=== PATIENT | female | born 1975 | race American Indian/Alaskan Native ===

== ENCOUNTER 2019-01-15 18:57 | Observation (INO) | payer BC ==
[2019-01-15 20:18] LABS: HEMOGLOBIN 11.8 g/dL (12.0-16.0); MEAN CELL VOLUME 81.3 fl (80.0-105.0); MEAN CORPUSCULAR HEMOGLOBIN 26.5 pg (25.0-35.0); MEAN CORPUSCULAR HGB CONC 32.6 g/dl (31.0-37.0); MEAN PLATELET VOLUME 8.2 fl (7.0-11.0); RBC 4.45 10^6/uL (3.5-6.1); RED CELL DISTRIBUTION WIDTH 14.8 % (11.5-14.5)
[2019-01-15 20:20] LABS: ALB/GLOB RATIO 1.1 (1.1-1.8); ALBUMIN 4.4 g/dL (3.0-4.8); ALT/SGPT 18 U/L (7-56); AST/SGOT 35 U/L (14-36); BLOOD UREA NITROGEN 14 mg/dL (7-21); CALCIUM 9.9 mg/dL (8.4-10.5); GFR NON-AFRICAN AMERICAN > 60
[2019-01-15 20:28] LABS: TROPONIN I < 0.01 ng/mL
--- NOTE | 2019-01-15 20:29 | ED PDOC ---
Arrival/HPI <Tyrone Meade - Last Filed: 01/15/19 23:12> - General Historian: Patient - History of Present Illness Narrative History of Present Illness (Text): 01/15/19 20:18 44 y/o female with PMH of iron deficiency anemia presents to the ED after fainting [place] the train [place] prior to come today. She reports lightheadedness, warmths, nausea before the episode. She lost consciousness for unknown period of time. She denied fall or trauma to the head. Denied chest pain, palpitations, SOB, headache, muscle weakness, loss of sensation or any other neurological symptoms, no urinary symptoms, no N/V/D or change in bowel movement. Patient denied h/o cardiac disease, neurological disease, seizure disorder or similar symptoms in the past. She reports having only some snack for the whole day. Patient also c/o right hip pain fo 2 days. She runs 5 miles a day 4-5 days/weak. Hip pain radiates to the right knee, denied any trauma to the area, no muscle weakness, no loss of sensation, no change in temperature, no swelling. She did not take any pain meds for the pain. Time/Duration: Prior to Arrival Symptom Onset: Sudden Symptom Course: Resolved Context: Home <Jose M Sahu - Last Filed: 01/16/19 00:13> - General Chief Complaint: Syncope Past Medical History - Provider Review Nursing Documentation Reviewed: Yes - Psychiatric Hx Psychophysiologic Disorder: No Hx Substance Use: No <Jose M Sahu - Last Filed: 01/16/19 00:13> Family/Social History - Physician Review Nursing Documentation Reviewed: Yes Family/Social History: Unknown Family HX Smoking Status: Never Smoked Hx Alcohol Use: Yes Frequency of alcohol use: Socially Hx Substance Use: No <Jose M Sahu - Last Filed: 01/16/19 00:13> Allergies/Home Meds <Tyrone Meade - Last Filed: 01/15/19 23:12> <Jose M Sahu - Last Filed: 01/16/19 00:13> Allergies/Adverse Reactions: Allergies gluten Allergy (Verified 01/15/19 19:01) RASH Home Medications: Home Meds Medication Instructions Recorded Confirmed No Known Home Med 01/15/19 01/15/19 Review of Systems - Physician Review All systems were reviewed & negative as marked: Yes - Review of Systems Constitutional: absent: Fatigue, Weight Change, Fevers, Night Sweats Eyes: absent: Vision Changes, Photophobia ENT: absent: Hearing Changes, Tinnitus Respiratory: absent: SOB, Cough, Sputum Cardiovascular: absent: Chest Pain, Palpitations Gastrointestinal: absent: Abdominal Pain, Stool Changes, Nausea, Vomiting Genitourinary Female: absent: Dysuria, Frequency, Hematuria Musculoskeletal: Arthralgias (right hip pain). absent: Back Pain, Neck Pain, Joint Swelling Skin: absent: Rash, Pruritis Neurological: absent: Headache, Focal Weakness, Speech Changes Endocrine: absent: Diaphoresis, Polyuria, Polydipsia Hemo/Lymphatic: absent: Easy Bleeding Psychiatric: absent: Anxiety, Depression <Jose M Sahu - Last Filed: 01/16/19 00:13> Physical Exam Vital Signs Temp Pulse Resp BP Pulse Ox 01/15/19 19:02 98.9 F 66 16 113/73 99 <Tyrone Meade - Last Filed: 01/15/19 23:12> Vital Signs Reviewed: Yes Vital Signs Temp Pulse Resp BP Pulse Ox 01/15/19 19:02 98.9 F 66 16 113/73 99 Temperature: Afebrile Blood Pressure: Normal Pulse: Regular Respiratory Rate: Normal Appearance: Positive for: Well-Appearing, Non-Toxic, Comfortable Pain Distress: Moderate Mental Status: Positive for: Alert and Oriented X 3 Finger Stick Blood Glucose: 70 - Systems Exam Head: Present: Atraumatic, Normocephalic Pupils: Present: PERRL Extroacular Muscles: Present: EOMI Conjunctiva: Present: Other (pale) Mouth: Present: Moist Mucous Membranes Pharnyx: No: ERYTHEMA, EXUDATE Neck: Present: Normal Range of Motion. No: MIDLINE TENDERNESS, JVD Respiratory/Chest: Present: Clear to Auscultation. No: Respiratory Distress, Accessory Muscle Use Cardiovascular: Present: Regular Rate and Rhythm, Normal S1, S2. No: Murmurs, Rub, Gallop Abdomen: Present: Normal Bowel Sounds. No: Tenderness, Distention, Rebound, Guarding Back: No: Normal Inspection, CVA Tenderness Upper Extremity: Present: Normal Inspection. No: Cyanosis, Edema Lower Extremity: Present: NORMAL PULSES, Tenderness (right hip. limited ROM). No: Edema, CALF TENDERNESS, Eugenio's Sign, Swelling, Erythema, Deformity Neurological: Present: GCS=15, CN II-XII Intact Skin: Present: Warm, Dry, Normal Color. No: Rashes Psychiatric: Present: Alert, Oriented x 3 <May Sahuony - Last Filed: 01/16/19 00:13> Medical Decision Making ED Course and Treatment: Impression: Pt seen and evaluated with medical technician. Aware and agree with HPI, clinical findings, plan, and management. Pt, whose past medical history includes anemia, presents s/p syncopal episode today. Plan: -- CT Head w/o contrast -- EKG -- Chest X-ray -- XR Hips -- Labs, cardiac enzymes -- Reassess and disposition Reviewed EKG, NSR at [address] bpm[address] Non-specific ST/T wave changes. 01/15/19 23:00 Chest X-ray reviewed, shows no acute processes. - Lab Interpretations Lab Results: Troponin I < 0.01 ng/mL 01/15/19 19:55 Total Bilirubin 0.6 mg/dL (0.2-1.3) 01/15/19 19:55 AST 35 U/L (14-36) 01/15/19 19:55 ALT 18 U/L (7-56) 01/15/19 19:55 Alkaline Phosphatase 85 U/L (38-126) 01/15/19 19:55 Total Protein 8.2 g/dL (5.8-8.3) 01/15/19 19:55 Albumin 4.4 g/dL (3.0-4.8) 01/15/19 19:55 Globulin 3.9 gm/dL 01/15/19 19:55 Albumin/Globulin Ratio 1.1 (1.1-1.8) 01/15/19 19:55 I have reviewed the lab results: Yes - RAD Interpretation Radiology Orders: 01/15/19 19:35 HEAD W/O CONTRAST [CT] Stat CHEST PORTABLE [RAD] Stat 01/15/19 19:36 Hip Bilateral [HIP MIN 3V W/ PELVIS ZULMA] [RAD] Stat Field Tax Auditor: ED Physician - EKG Interpretation Interpreted by ED Physician: Yes Type: 12 lead EKG <Tyrone Meade - Last Filed: 01/15/19 23:12> ED Course and Treatment: CT head negative for ICH -Case discussed with Dr Lee and medical technician. Patient is admitted for observation in remote tele. 01/16/19 00:10 - Lab Interpretations I have reviewed the lab results: Yes - RAD Interpretation Radiology Orders: 01/15/19 19:35 HEAD W/O CONTRAST [CT] Stat CHEST PORTABLE [RAD] Stat 01/15/19 19:36 Hip Bilateral [HIP MIN 3V W/ PELVIS ZULMA] [RAD] Stat Field Tax Auditor: ED Physician - EKG Interpretation Interpreted by ED Physician: Yes Type: 12 lead EKG <Jose M Sahu - Last Filed: 01/16/19 00:13> - PA / [employer] / Resident Statement MD/DO has reviewed & agrees with the documentation as recorded. MD/DO has examined the patient and agrees with the treatment plan. <Tyrone Meade - Last Filed: 01/15/19 23:12> Disposition/Present on Arrival <Tyrone Meade - Last Filed: 01/15/19 23:12> - Present on Arrival Any Indicators Present on Arrival: No History of DVT/PE: No History of Uncontrolled Diabetes: No Urinary Catheter: No History of Decub. Ulcer: No History Surgical Site Infection Following: None - Disposition Have Diagnosis and Disposition been Completed?: Yes Disposition Time: 00:13 Patient Plan: Admission, Observation <Jose M Sahu - Last Filed: 01/16/19 00:13> - Disposition Diagnosis: Syncope, Iliotibial band syndrome Disposition: HOSPITALIZED Patient Problems: Current Active Problems Problem Status Onset Iliotibial band syndrome Acute Syncope Acute Condition: STABLE
--- NOTE | 2019-01-16 00:18 | CP.PCM.HP ---
<YasmeenSilviagilson - Last Filed: 01/16/19 02:15> History of Present Illness - History of Present Illness History of Present Illness: PGY1 Hospitalist History and Physical Exam Note for Dr. Lee CC: s/p fainting episode This is a 44 year old female with PMH of iron deficiency anemia, thalassemia trait who presents to the ED after fainting in a train station just prior to arrival. Patient states that she was hanging onto a rail on the train when she began feeling lightheaded and nauseous. The Patient then says that she recalls hearing people around saying "help her down," and realized she must have fainted. Patient admits that she lost consciousness for unknown period of time. ROS is otherwise unremarkable for chest pain, palpitations, shortness of breath, headache, muscle weakness, no urinary and/or bowel incontinence, and/or tongue biting. Patient denies previous episodes. She denies having complete meals today, and says that she only had a small snack to eat. Of note, the Patient also complains of right hip pain for the past 2 days, and says that the pain radiates into the right knee. Patient says that she is a runner who runs 5 miles a day 4-5 days/week. Patient denies any fall and/or trauma to the area, no muscle weakness, no loss of sensation, no change in temperature, no swelling. PMH: iron deficiency anemia, thalassemia trait PSH: Tubal ligation Family Hx: Sister 2/2 thalassemia complication Social Hx: Patient admits to drinking socially. Patient denies tobacco use. patient denies substance abuse Medications: Patient denies taking any medications Allergies: Gluten (rash) Present on Admission - Present on Admission Any Indicators Present on Admission: No History of DVT/PE: No History of Uncontrolled Diabetes: No Urinary Catheter: No Decubitus Ulcer Present: No Review of Systems - Review of Systems All systems: reviewed and no additional remarkable complaints except (as per HPI) Past Patient History - Past Social History Smoking Status: Never Smoked - PSYCHIATRIC Hx Psychophysiologic Disorder: No Hx Substance Use: No - SURGICAL HISTORY Hx Surgeries: No Meds Allergies/Adverse Reactions: Allergies Allergy/AdvReac Type Severity Reaction Status Date / Time gluten Allergy RASH Verified 01/15/19 19:01 Physical Exam - Constitutional Appears: Non-toxic, No Acute Distress - Head Exam Head Exam: ATRAUMATIC, NORMAL INSPECTION, NORMOCEPHALIC - Eye Exam Eye Exam: EOMI, Normal appearance, PERRL Pupil Exam: NORMAL ACCOMODATION - ENT Exam ENT Exam: Mucous Membranes Moist, Normal Exam - Neck Exam Neck exam: Positive for: Full Rom, Normal Inspection. Negative for: Lymphadenopathy - Respiratory Exam Respiratory Exam: Clear to Auscultation Bilateral, NORMAL BREATHING PATTERN. absent: Accessory Muscle Use, Decreased Breath Sounds, Rhonchi, Wheezes, Respiratory Distress, Stridor - Cardiovascular Exam Cardiovascular Exam: REGULAR RHYTHM, +S1, +S2 - GI/Abdominal Exam GI & Abdominal Exam: Normal Bowel Sounds, Soft. absent: Distended, Firm, Guarding, Tenderness - Extremities Exam Extremities exam: Positive for: full ROM, normal capillary refill, normal insp ection, pedal pulses present. Negative for: calf tenderness, joint swelling, pedal edema - Back Exam Back exam: NORMAL INSPECTION - Neurological Exam Neurological exam: Alert, CN II-XII Intact, Oriented x3 - Psychiatric Exam Psychiatric exam: Normal Affect, Normal Mood - Skin Skin Exam: Dry, Intact, Normal Color, Warm Results - Vital Signs Recent Vital Signs: Last Vital Signs Temp 98.9 F 01/15/19 19:02 Pulse 76 01/15/19 23:25 Resp 24 01/15/19 23:25 BP 100/56 L 01/15/19 23:25 Pulse Ox 96 01/15/19 23:25 - Labs Result Diagrams: 01/15/19 19:55 01/15/19 19:55 Labs: Laboratory Results - last 24 hr 01/15/19 01/15/19 01/15/19 19:50 19:55 19:55 WBC 8.0 RBC 4.45 Hgb 11.8 L Hct 36.2 MCV 81.3 MCH 26.5 MCHC 32.6 RDW 14.8 H Plt Count 310 MPV 8.2 Sodium 137 Potassium 4.1 Chloride 101 Carbon Dioxide 28 Anion Gap 12 BUN 14 Creatinine 0.8 Est GFR ( Amer) > 60 Est GFR (Non-Af Amer) > 60 POC Glucose (mg/dL) 70 Random Glucose 91 Calcium 9.9 Total Bilirubin 0.6 AST 35 ALT 18 Alkaline Phosphatase 85 Lactate Dehydrogenase 445 Total Creatine Kinase 92 Troponin I < 0.01 Total Protein 8.2 Albumin 4.4 Globulin 3.9 Albumin/Globulin Ratio 1.1 Assessment & Plan - Assessment and Plan (Free Text) Assessment: This is a 44 year old female with PMH of iron deficiency anemia, thalassemia tra it who presents to the ED after fainting [place] a train [place] just prior to arrival. S/P syncope - CT head without contrast: no acute intracranial abnormality - EKG: NSR at 77 bpm. Non-specific ST/T wave changes. - CXR: no acute processes - Cardiology consulted (Dr. Amaya) recommendations appreciated - Neurology consulted (Dr. Damico) recommendations appreciated - ECHO with bubble study ordered - Carotid duplex ordered - Troponins negative x1 - F/U UDS - F/U repeat EKG - F/U repeat troponin Q6H - F/U CBC, CMP, Mg, Phos - Monitor in remote telemetry Right Hip Pain likely secondary to running - F/U hip/pelvis X-ray - Pain management: Toradol 15mg IVP Q6H for severe pain History of Iron Deficiency Anemia - Hgb=11.8 - F/U iron studies - F/U B12, folate - Consider checking for thalassemia trait - Monitor CBC PPx: - DVT: SCD - GI: not indicated at this time - Regular diet Patient seen and case discussed with Dr. Rosa Arana PGY1 <Maddie Lee - Last Filed: 01/16/19 05:47> Results - Vital Signs Recent Vital Signs: Last Vital Signs Temp 98.2 F 01/16/19 01:00 Pulse 69 01/16/19 05:32 Resp 18 01/16/19 01:02 BP 106/64 01/16/19 01:00 Pulse Ox 95 01/16/19 01:00 - Labs Result Diagrams: 01/15/19 19:55 01/15/19 19:55 Labs: Laboratory Results - last 24 hr 01/15/19 01/15/19 01/15/19 19:50 19:55 19:55 WBC 8.0 RBC 4.45 Hgb 11.8 L Hct 36.2 MCV 81.3 MCH 26.5 MCHC 32.6 RDW 14.8 H Plt Count 310 MPV 8.2 Sodium 137 Potassium 4.1 Chloride 101 Carbon Dioxide 28 Anion Gap 12 BUN 14 Creatinine 0.8 Est GFR ( Amer) > 60 Est GFR (Non-Af Amer) > 60 POC Glucose (mg/dL) 70 Random Glucose 91 Calcium 9.9 Iron TIBC % Saturation Total Bilirubin 0.6 AST 35 ALT 18 Alkaline Phosphatase 85 Lactate Dehydrogenase 445 Total Creatine Kinase 92 Troponin I < 0.01 Total Protein 8.2 Albumin 4.4 Globulin 3.9 Albumin/Globulin Ratio 1.1 TSH 3rd Generation 01/16/19 01/16/19 01/16/19 01:45 01:45 01:45 WBC RBC Hgb Hct MCV MCH MCHC RDW Plt Count MPV Sodium Potassium Chloride Carbon Dioxide Anion Gap BUN Creatinine Est GFR ( Amer) Est GFR (Non-Af Amer) POC Glucose (mg/dL) Random Glucose Calcium Iron 19 L TIBC 342 % Saturation 5 L Total Bilirubin AST ALT Alkaline Phosphatase Lactate Dehydrogenase Total Creatine Kinase Troponin I < 0.01 Total Protein Albumin Globulin Albumin/Globulin Ratio TSH 3rd Generation 5.73 H Attending/Attestation - Attestation I have personally seen and examined this patient.: Yes I have fully participated in the care of the patient.: Yes I have reviewed all pertinent clinical information: Yes Notes (Text): 01/16/19 05:42 Pt seen with the resident by the bedside. Case discussed in detail. Agree with documentation,assessment and plan of treatment.
[2019-01-16 01:04] VITALS: RESP 18
[2019-01-16 01:50] VITALS: BMI 34.5
[2019-01-16 02:25] LABS: IRON 19 ug/dL (45-180)
[2019-01-16 02:35] LABS: % IRON SATURATION 5 % (20-55); TOTAL IRON BINDING CAPACITY 342 ug/dL (265-497)
[2019-01-16 02:38] LABS: TROPONIN I < 0.01 ng/mL
--- NOTE | 2019-01-16 08:21 | CT ---
Date of service: 01/15/2019 PROCEDURE: CT HEAD WITHOUT CONTRAST. HISTORY: syncope COMPARISON: None available. TECHNIQUE: Axial computed tomography images were obtained through the head/brain without intravenous contrast. Radiation dose: Total exam DLP = 959.92 mGy-cm. This CT exam was performed using one or more of the following dose reduction techniques: Automated exposure control, adjustment of the mA and/or kV according to patient size, and/or use of iterative reconstruction technique. FINDINGS: HEMORRHAGE: No intracranial hemorrhage. BRAIN: No mass effect or edema. No atrophy or chronic microvascular ischemic changes. VENTRICLES: Unremarkable. No hydrocephalus. CALVARIUM: Unremarkable. PARANASAL SINUSES: Unremarkable as visualized. No significant inflammatory changes. MASTOID AIR CELLS: Unremarkable as visualized. No inflammatory changes. OTHER FINDINGS: The report concurs with the preliminary [facility] report IMPRESSION: No acute intracranial findings
[2019-01-16 09:22] VITALS: BP 102/68; TEMP 98.2; O2SAT 96
--- NOTE | 2019-01-16 09:23 | RAD ---
Date of service: 01/15/2019 PROCEDURE: CHEST RADIOGRAPH, 1 VIEW HISTORY: syncope COMPARISON: None available. FINDINGS: LUNGS: Clear. PLEURA: No pneumothorax or pleural fluid seen. CARDIOVASCULAR: No aortic atherosclerotic calcification present. Normal. OSSEOUS STRUCTURES: No significant abnormalities. VISUALIZED UPPER ABDOMEN: Normal. OTHER FINDINGS: None. IMPRESSION: No active disease.
--- NOTE | 2019-01-16 10:43 | US ---
PROCEDURE: Bilateral carotid artery duplex ultra HISTORY: Carotid stenosis syncope PHYSICIAN(S): Jasbir Lagos MD. TECHNIQUE: Duplex sonography and color-flow Doppler were used to evaluate the carotid bifurcations and limited segments of the vertebral arteries bilaterally. FINDINGS: There is minimal intimal-medial thickening noted at the carotid bifurcations bilaterally. The peak systolic velocity in the proximal right internal carotid artery is 78 cm/sec. This corresponds to a 0-19 percent proximal right ICA stenosis. Normal systolic velocities are noted in the proximal right external carotid artery. There is antegrade flow in the right vertebral artery. The peak systolic velocity in the proximal left internal carotid artery is 77 cm/sec. This corresponds to a 0-19 percent proximal left ICA stenosis. Normal systolic velocities are noted in the proximal left external carotid artery. There is antegrade flow in the left vertebral artery. IMPRESSION: 1. Bilateral 0-19 percent proximal ICA stenoses. 2. Antegrade flow in both vertebral arteries.
[2019-01-16 11:14] VITALS: PULSE 68
--- NOTE | 2019-01-16 11:15 | RAD ---
PROCEDURE: Radiographs of the pelvis and bilateral hips HISTORY: right hip pain COMPARISON: None. FINDINGS: BONES: Pelvis: Unremarkable. Right hip:Unremarkable. Left hip:Unremarkable. JOINTS: Right hip: Unremarkable. Left hip: Unremarkable. Sacroiliac Joints: Unremarkable. Pubic symphysis: Unremarkable. SOFT TISSUES: Normal. OTHER FINDINGS: None. IMPRESSION: Unremarkable radiographs of the hips and pelvis.
[2019-01-16 13:01] LABS: FERRITIN 14.3 ng/mL
--- NOTE | 2019-01-16 13:29 | CP.PCM.DIS ---
<Constantin Bernabe - Last Filed: 01/16/19 13:52> Provider - Provider Date of Admission: 01/15/19 23:10 Attending physician: Jessica Lin MD Primary care physician: NO FAMILY PROVIDER Consults: 01/16/19 01:03 Physician Consult Routine Comment: Consulting Provider: Jessica Amaya Consulting Physician: Jessica Amaya Reason for Consult: s/p syncope 01/16/19 01:07 Physician Consult Routine Comment: Consulting Provider: Roseanne Damico Consulting Physician: Roseanne Daimco Reason for Consult: S/P syncope Time Spent in preparation of Discharge (in minutes): 45 Diagnosis - Discharge Diagnosis (1) Syncope Status: Resolved (2) Hypothyroidism Status: Chronic (3) Iliotibial band syndrome Status: Chronic Hospital Course - Lab Results Lab Results: Most Recent Lab Values WBC 8.0 10^3/uL (4.5-11.0) 01/15/19 19:55 RBC 4.45 10^6/uL (3.5-6.1) 01/15/19 19:55 Hgb 11.8 g/dL (12.0-16.0) L 01/15/19 19:55 Hct 36.2 % (36.0-48.0) 01/15/19 19:55 MCV 81.3 fl (80.0-105.0) 01/15/19 19:55 MCH 26.5 pg (25.0-35.0) 01/15/19 19:55 MCHC 32.6 g/dl (31.0-37.0) 01/15/19 19:55 RDW 14.8 % (11.5-14.5) H 01/15/19 19:55 Plt Count 310 10^3/uL (120.0-450.0) 01/15/19 19:55 MPV 8.2 fl (7.0-11.0) 01/15/19 19:55 Sodium 137 mmol/L (132-148) 01/15/19 19:55 Potassium 4.1 mmol/L (3.6-5.0) 01/15/19 19:55 Chloride 101 mmol/L (98-107) 01/15/19 19:55 Carbon Dioxide 28 mmol/L (21-33) 01/15/19 19:55 Anion Gap 12 (10-20) 01/15/19 19:55 BUN 14 mg/dL (7-21) 01/15/19 19:55 Creatinine 0.8 mg/dl (0.7-1.2) 01/15/19 19:55 Est GFR ( Amer) > 60 01/15/19 19:55 Est GFR (Non-Af Amer) > 60 01/15/19 19:55 POC Glucose (mg/dL) 70 mg/dL (65-110) 01/15/19 19:50 Random Glucose 91 mg/dL (70-110) 01/15/19 19:55 Hemoglobin A1c 5.6 % (4.2-6.5) 01/15/19 19:55 Calcium 9.9 mg/dL (8.4-10.5) 01/15/19 19:55 Iron 19 ug/dL (45-180) L 01/16/19 01:45 TIBC 342 ug/dL (265-497) 01/16/19 01:45 % Saturation 5 % (20-55) L 01/16/19 01:45 Ferritin 14.3 ng/mL 01/16/19 01:45 Total Bilirubin 0.6 mg/dL (0.2-1.3) 01/15/19 19:55 AST 35 U/L (14-36) 01/15/19 19:55 ALT 18 U/L (7-56) 01/15/19 19:55 Alkaline Phosphatase 85 U/L (38-126) 01/15/19 19:55 Lactate Dehydrogenase 445 U/L (333-699) 01/15/19 19:55 Total Creatine Kinase 92 U/L (35-230) 01/15/19 19:55 Troponin I < 0.01 ng/mL 01/16/19 10:40 Total Protein 8.2 g/dL (5.8-8.3) 01/15/19 19:55 Albumin 4.4 g/dL (3.0-4.8) 01/15/19 19:55 Globulin 3.9 gm/dL 01/15/19 19:55 Albumin/Globulin Ratio 1.1 (1.1-1.8) 01/15/19 19:55 Free T4 0.76 ng/dL (0.78-2.19) L 01/16/19 10:40 TSH 3rd Generation 5.73 mIU/mL (0.46-4.68) H 01/16/19 01:45 - Hospital Course Hospital Course: This is a 44 year old female with PMH of iron deficiency anemia and sickle cell trait who [place]. Patient states that she was hanging onto a rail on the train when she began feeling lightheaded and nauseous. She states that she did not eat anything but 1 or 2 pieces of crackers for the whole day. She admits to have lost consciousness but denies urinary and/or bowel incontinence, and/or tongue biting. Patient denies previous syncopal episodes. During her hospital stay, a syncope work up was done. EKG, CXR. Head CT, Hip/pelvis Xray, carotid artery ultrasound, and echocardiogram were done and showed no acute findings. She was treated with pepcid for gerd symptoms and toradol for her leg pain. Patient was found to have high TSH and low T4. Patient was diagnosed with hypothryroidism and was instructed to start taking synthroid. Patient was educated about hypothyroidism and all questions were answered. She was instructed to follow up with her PMD in one week and return to the emergency room for worsening or newly concerning symptoms. Discharge Exam - Head Exam Head Exam: ATRAUMATIC, NORMAL INSPECTION, NORMOCEPHALIC - Additional Findings Additional findings: - Constitutional Appears: Non-toxic, No Acute Distress - Head Exam Head Exam: ATRAUMATIC, NORMAL INSPECTION, NORMOCEPHALIC - Eye Exam Eye Exam: EOMI, Normal appearance, PERRL Pupil Exam: NORMAL ACCOMODATION - ENT Exam ENT Exam: Mucous Membranes Moist, Normal Exam - Neck Exam Neck exam: Positive for: Full Rom, Normal Inspection. Negative for: Lymphadenopathy - Respiratory Exam Respiratory Exam: Clear to Auscultation Bilateral, NORMAL BREATHING PATTERN. absent: Accessory Muscle Use, Decreased Breath Sounds, Rhonchi, Wheezes, Respiratory Distress, Stridor - Cardiovascular Exam Cardiovascular Exam: REGULAR RHYTHM, +S1, +S2 - GI/Abdominal Exam GI & Abdominal Exam: Normal Bowel Sounds, Soft. absent: Distended, Firm, Guarding, Tenderness - Extremities Exam Extremities exam: Positive for: full ROM, normal capillary refill, normal inspection, pedal pulses present. Negative for: calf tenderness, joint swelling, pedal edema. Lateral right thigh tender to palpation - Back Exam Back exam: NORMAL INSPECTION - Neurological Exam Neurological exam: Alert, CN II-XII Intact, Oriented x3 - Psychiatric Exam Psychiatric exam: Normal Affect, Normal Mood - Skin Skin Exam: Dry, Intact, Normal Color, Warm Discharge Plan - Discharge Medications Prescriptions: Levothyroxine [Synthroid] 25 mcg PO DAILY #30 tab - Follow Up Plan Condition: STABLE Disposition: HOME/ ROUTINE Instructions: Hypothyroidism (Underactive Thyroid) (DC), Iliotibial Band Syndrome (DC), Syncope (ED) Additional Instructions: 1. Start taking Synthroid 25mg once daily every morning on an empty stomach. 2. Stay hydrated throughout the day and avoid skipping meals. Eat breakfast, lunch, and dinner. 3. Follow up with your primary care doctor, Dr. Soto in 1 week. You will need to schedule for a repeat blood test to check your Thyroid levels with your doctor. 4. Rest and avoid vigorous activities/exercise for 4-6 weeks. You may take Ibuprofen as needed for your right leg pain. 5. Return to the emergency room for worsening or newly concerning symptoms Referrals: FAMILY PROVIDER,NO [Primary Care Provider] - Follow up with primary <Jessica Lin - Last Filed: 01/17/19 08:10> Provider - Provider Date of Admission: 01/15/19 23:10 Attending physician: Jessica Lin MD Primary care physician: TEGAN FAMILY PROVIDER Consults: 01/16/19 01:03 Physician Consult Routine Comment: Consulting Provider: Jessica Amaya Consulting Physician: Jessica Amaya Reason for Consult: s/p syncope 01/16/19 01:07 Physician Consult Routine Comment: Consulting Provider: Roseanne Damico Consulting Physician: Roseanne Damico Reason for Consult: S/P syncope Hospital Course - Lab Results Lab Results: Most Recent Lab Values WBC 8.0 10^3/uL (4.5-11.0) 01/15/19 19:55 RBC 4.45 10^6/uL (3.5-6.1) 01/15/19 19:55 Hgb 11.8 g/dL (12.0-16.0) L 01/15/19 19:55 Hct 36.2 % (36.0-48.0) 01/15/19 19:55 MCV 81.3 fl (80.0-105.0) 01/15/19 19:55 MCH 26.5 pg (25.0-35.0) 01/15/19 19:55 MCHC 32.6 g/dl (31.0-37.0) 01/15/19 19:55 RDW 14.8 % (11.5-14.5) H 01/15/19 19:55 Plt Count 310 10^3/uL (120.0-450.0) 01/15/19 19:55 MPV 8.2 fl (7.0-11.0) 01/15/19 19:55 Sodium 137 mmol/L (132-148) 01/15/19 19:55 Potassium 4.1 mmol/L (3.6-5.0) 01/15/19 19:55 Chloride 101 mmol/L (98-107) 01/15/19 19:55 Carbon Dioxide 28 mmol/L (21-33) 01/15/19 19:55 Anion Gap 12 (10-20) 01/15/19 19:55 BUN 14 mg/dL (7-21) 01/15/19 19:55 Creatinine 0.8 mg/dl (0.7-1.2) 01/15/19 19:55 Est GFR ( Amer) > 60 01/15/19 19:55 Est GFR (Non-Af Amer) > 60 01/15/19 19:55 POC Glucose (mg/dL) 70 mg/dL (65-110) 01/15/19 19:50 Random Glucose 91 mg/dL (70-110) 01/15/19 19:55 Hemoglobin A1c 5.6 % (4.2-6.5) 01/15/19 19:55 Calcium 9.9 mg/dL (8.4-10.5) 01/15/19 19:55 Iron 19 ug/dL (45-180) L 01/16/19 01:45 TIBC 342 ug/dL (265-497) 01/16/19 01:45 % Saturation 5 % (20-55) L 01/16/19 01:45 Ferritin 14.3 ng/mL 01/16/19 01:45 Total Bilirubin 0.6 mg/dL (0.2-1.3) 01/15/19 19:55 AST 35 U/L (14-36) 01/15/19 19:55 ALT 18 U/L (7-56) 01/15/19 19:55 Alkaline Phosphatase 85 U/L (38-126) 01/15/19 19:55 Lactate Dehydrogenase 445 U/L (333-699) 01/15/19 19:55 Total Creatine Kinase 92 U/L (35-230) 01/15/19 19:55 Troponin I < 0.01 ng/mL 01/16/19 10:40 Total Protein 8.2 g/dL (5.8-8.3) 01/15/19 19:55 Albumin 4.4 g/dL (3.0-4.8) 01/15/19 19:55 Globulin 3.9 gm/dL 01/15/19 19:55 Albumin/Globulin Ratio 1.1 (1.1-1.8) 01/15/19 19:55 Vitamin B12 164 pg/mL (239-931) L 01/16/19 01:45 Folate 7.4 ng/mL 01/16/19 01:45 Free T4 0.76 ng/dL (0.78-2.19) L 01/16/19 10:40 TSH 3rd Generation 5.73 mIU/mL (0.46-4.68) H 01/16/19 01:45 Attending/Attestation - Attestation I have personally seen and examined this patient.: Yes I have fully participated in the care of the patient.: Yes I have reviewed all pertinent clinical information, including history, physical exam and plan: Yes Notes (Text): 01/17/19 08:06 Medical record note made by the resident after discussion with my direction and input after the patient was personally seen and examined by me. I have reviewed the chart and agree that the record accurately reflects by personal performance of the history, physical exam, data review, and medical decision-making, in the course for the patient. I have also personally directed the plan of care. 44 year old female with PMH of iron deficiency anemia and sickle cell trait was admitted with H/O syncope while standing , there was no focal deficit. Etiology is likely due to orthostatic hypotension. Telemetry is unremarkable for any arrhythmia. CT head is negative. Echo showed normal systolic function. Carotid Doppler is unremarkable. Patient is ambulatory at the time of discharge. She is found to have hypothyroidism, has been started on levothyroxine 25 mcg daily, will need repeat TSH level in 6-8 weeks. Management plan was discussed in detail with patient. Education was provided.
[2019-01-16 13:31] LABS: FOLATE 7.4 ng/mL
--- NOTE | 2019-01-16 15:44 | CARD ---
APPROVED REPORT Date of service: 01/15/2019 EKG Measurement Heart [id number] <Conclusion> Normal sinus rhythm Normal Electrocardiogram
--- NOTE | 2019-01-16 17:47 | CARD ---
APPROVED REPORT Date of service: 01/16/2019 EXAM: Two-dimensional and M-mode echocardiogram with Doppler and color Doppler. INDICATION Syncope 2D DIMENSIONS Left Atrium (2D)3.3 (1.6-4.0cm)IVSd1.2 (0.7-1.1cm) LVDd3.9 (3.9-5.9cm)PWd1.1 (0.7-1.1cm) LVDs2.6 (2.5-4.0cm)FS (%) 32.4 % LVEF (%)61.4 (>50%) M-Mode DIMENSIONS Aortic Root2.60 (2.2-3.7cm)Aortic Cusp Exc.1.80 (1.5-2.0cm) Aortic Valve AoV Peak [id number]/Jonathan Peak GR.6mmHg Mitral Valve E/A ratio0.0 TDI E/Lateral E'0.0E/Medial E'0.0 Tricuspid Valve TR Peak [id number] [id number] Peak Gr.21mmHg [id number] LEFT VENTRICLE The left ventricle is normal size. There is normal left ventricular wall thickness. The left ventricular function is normal. The left ventricular ejection fraction is within the normal range. There is normal LV segmental wall motion. The left ventricular diastolic function is normal. RIGHT VENTRICLE The right ventricle is normal size. There is normal right ventricular wall thickness. The right ventricular systolic function is normal. ATRIA The left atrium size is normal. The right atrium size is normal. The interatrial septum is intact AORTIC VALVE The aortic valve is mildly thickened. No aortic regurgitation is present. There is no aortic valvular stenosis. MITRAL VALVE The mitral valve is mildly thickened. There is no mitral valve regurgitation noted. There is no mitral valve stenosis. TRICUSPID VALVE There is mild tricuspid regurgitation. PULMONIC VALVE The pulmonary valve is normal in structure. There is no pulmonic valvular regurgitation. GREAT VESSELS The aortic root is normal in size. The IVC is normal in size and collapses >50% with inspiration. <Conclusion> There is normal left ventricular wall thickness. The left ventricular function is normal. The left ventricular ejection fraction is within the normal range. There is normal LV segmental wall motion. The left ventricular diastolic function is normal. There is mild tricuspid regurgitation. The interatrial septum is intact
== END 2019-01-16 14:42 | disposition home or self-care (01) ==
LOC: ED 18:57 → ERH 23:10 → 3RSO 01-16 00:49
PROVIDERS: ADMIT Internal Medicine; ATTEND Internal Medicine
DX: I95.1 Orthostatic hypotension (principal); E03.9 Hypothyroidism, unspecified; M76.30 Iliotibial band syndrome, unspecified leg; D57.3 Sickle-cell trait; Z79.890 Hormone replacement therapy; D50.9 Iron deficiency anemia, unspecified; Z91.018 Allergy to other foods; M25.551 Pain in right hip
CPT/HCPCS: 36415; 70450; 71045; 73522; 80053; 81025; 82550; 82607; 82728; 82746; 82948; 83036; 83540; 83550; 83615; 84439; 84443; 84484; 85027; 93005; 93306; 93880; 96374; 96376; 97116; 97161; 99285; G0378; G8978; G8979; J1885